=== PATIENT | female | born 1935 | race Caucasian/White ===

== ENCOUNTER 2020-08-20 13:52 | Emergency (ER) | payer SELFPAY ==
--- NOTE | 2020-08-20 17:09 | ER Document Report ---
ED GI/ - General Stated Complaint: AMS Time Seen by Provider: 08/20/20 16:36 Primary Care Provider: TUCKER TATUM DO [NO LOCAL MD] - Follow up tomorrow Notes: Patient is an 84-year-old female presents emergency department with a chief complaint of nausea, vomiting, feeling dehydrated. Patient has history of an acute kidney injury with metabolic acidosis and admission on July 17 in [facility]. Discharge paperwork states that she had hyperkalemia with acute kidney injury. She was supposed to go to her primary care provider today, but she states, "he was on vacation." Patient then went to urgent care, who then referred her to the emergency department. Patient states that she recently moved down here in the past 3 days. Patient has a urostomy and a colostomy. States that she is getting adequate output, but states that she does not feel she is "not getting enough." States that she has not been able to eat well. She lives with her , who apparently has dementia, according to the patient. Denies any contact with anyone who tested positive for COVID-19. - Related Data Allergies/Adverse Reactions: No Known Allergies Allergy (Verified 08/20/20 16:07) Past Medical History - General Information source: Patient - Social History Smoking Status: Never Smoker Family History: Reviewed & Not Pertinent - Past Medical History Cardiac Medical History: Reports: Hx Hypertension Renal/ Medical History: Reports: Hx End Stage Renal Disease Review of Systems - Review of Systems Notes: REVIEW OF SYSTEMS: CONSTITUTIONAL : Denies recent unintentional weight loss. See HPI. EENT: Denies eye, ear, throat, or mouth pain, discharge, or symptoms. Denies nasal or sinus congestion. CARDIOVASCULAR: Denies chest pain. RESPIRATORY: Denies shortness of breath, cough, congestion, difficulty breathing, or wheezing. GASTROINTESTINAL: Denies nausea, vomiting, and diarrhea. Denies abdominal pain. Denies constipation. GENITOURINARY: Denies difficulty urinating, burning, blood in urine, urgency or frequency. MUSCULOSKELETAL: Denies neck and back pain. Denies joint pain or swelling. SKIN: Denies rash, itchiness, or lesions HEMATOLOGIC : Denies easy bruising or bleeding. LYMPHATIC: Denies swollen, painful, enlarged glands. NEUROLOGICAL: See HPI. PSYCHIATRIC: Denies stress, anxiety, alteration in sleep patterns, or depression. All other systems reviewed and negative. Physical Exam - Vital signs Vitals: Temp Pulse Resp BP Pulse Ox 99.9 F 110 H 20 147/67 H 99 08/20/20 14:19 08/20/20 14:19 08/20/20 14:19 08/20/20 14:19 08/20/20 14:19 - Notes Notes: PHYSICAL EXAMINATION: GENERAL: Appears well, healthy, well-nourished, no acute distress. HEAD: Normocephalic, atraumatic. EYES: PERRL, conjunctiva normal, all extraocular movements intact, sclera no nicteric ENT: Moist mucous membranes. NECK: Supple, no noticeable swelling, redness, rash. Normal range of motion. LUNGS: Equal breath sounds bilaterally and clear to auscultation. No wheezes r ales or rhonchi. CARDIOVASCULAR: S1-S2, regular rate, regular rhythm. Radial pulses 2+, normal. ABDOMEN: Normoactive bowel sounds. Soft, nontender, no guarding, no rebound tenderness, and no masses palpated. EXTREMITIES: Normal strength and range of motion, no pitting or edema. No cyanosis. NEUROLOGICAL: Moves all extremities upon command. Strength 5/5 in all extremities. PSYCH: Normal mood, normal affect. SKIN: Warm, dry. No rash, lesions, ulcerations noted. Normal skin turgor. Course - Re-evaluation Re-evalutation: 08/20/20 18:24 CT went to bedside to take the patient to CAT scan, but she became angry and did not want to go to CT. She stated, "I do not need a fucking CAT scan." I explained to her that since she has been confused lately, it would be important to have a CAT scan to rule out any intracranial processes causing her to have her confusion. She states, "I just want a note my potassium is and I want to go." Patient is alert and oriented and is able to make her own decisions. She did not have information on what her last potassium was. Patient states that her creatinine was 5 over at [facility]. Her creatinine is 2, which is improved. Patient is leaving AGAINST MEDICAL ADVICE, as I would like to have a CT of her head. The patient has chosen to leave the facility against medical advice. The relevant issues have been reviewed and discussed with the patient and family at the bedside. At the time of this assessment there is no indication for involuntary commitment. The patient is alert, oriented, and able to express clearly their reasoning for not wanting to remain in the emergency department for further treatment. The patient is not clinically psychotic, intoxicated, and denies and suicidal ideation. Differential or suspected diagnoses based on medical screening exam: Intracranial bleed, microvascular ischemia. The patient is aware of the concerning diagnoses and acknowledges understanding of the reasons for the following recommendations: She is aware that a CT scan is recommended. The following recommendations/services were offered and refused: CT scan of the head. The following risks were explained: , permanent disability, loss of function Clinical impression: Patient is competent to make decisions regarding the medical that is being offered. - Vital Signs Vital signs: Temp Pulse Resp BP Pulse Ox 99.9 F 87 18 125/74 98 08/20/20 14:19 08/20/20 18:43 08/20/20 18:43 08/20/20 18:43 08/20/20 18:43 - Laboratory Result Diagrams: 08/20/20 15:38 08/20/20 15:38 Laboratory results interpreted by me: 08/20/20 08/20/20 15:38 15:38 RBC 3.26 L Hgb 10.6 L Hct 31.5 L Lymph % (Auto) 5.6 L Absolute Lymphs (auto) 0.4 L Seg Neutrophils % 83.6 H Carbon Dioxide 21 L BUN 42 H Creatinine 2.00 H Est GFR ( Amer) 29 L Est GFR (MDRD) Non-Af 24 L Glucose 117 H Discharge - Discharge Clinical Impression: Nausea and vomiting, Confusion Condition: Stable Disposition: AGAINST MEDICAL ADVICE Additional Instructions: You were seen today in the emergency department to have your labs checked. Your potassium is normal. Your creatinine is elevated, but you states that it is better than it was. I recommend that you have a CT scan of the head, but you are not wanting this at this time. Please follow-up with your doctor tomorrow in regards to this visit. Referrals: TUCKER TATUM DO [NO LOCAL MD] - Follow up tomorrow
[2020-08-20 17:31] LABS: ABSOLUTE EOSINOPHILS # (AUTO) 0.1 10^3/uL (0.0-0.6); ABSOLUTE LYMPHOCYTES (AUTO) 0.4 10^3/uL (0.5-4.7); ABSOLUTE MONOCYTES (AUTO) 0.6 10^3/uL (0.1-1.4); ABSOLUTE NEUT (AUTO) 5.7 10^3/uL (1.7-8.2); BASOPHILS % (AUTO) 0.5 % (0-2); EOSINOPHILS % (AUTO) 1.6 % (0-6); HEMATOCRIT 31.5 % (36.0-47.0); HEMOGLOBIN 10.6 g/dL (12.0-15.5); LYMPHOCYTES % (AUTO) 5.6 % (13-45); MEAN CORPUSCULAR HEMOGLOBIN 32.5 pg (27.0-33.4); MEAN CORPUSCULAR HGB CONC 33.6 g/dL (32.0-36.0); MEAN CORPUSCULAR VOLUME 97 fl (80-97); MONOCYTES % (AUTO) 8.7 % (3-13); PLATELET COUNT 221 10^3/uL (150-450); RED BLOOD COUNT 3.26 10^6/uL (3.72-5.28); RED CELL DISTRIBUTION WIDTH 12.8 % (11.5-14.0); SEGMENTED NEUTROPHILS % (AUTO) 83.6 % (42-78); TOTAL CELLS COUNTED % (AUTO) 100 %; WHITE BLOOD COUNT 6.8 10^3/uL (4.0-10.5)
[2020-08-20 17:32] LABS: VENOUS BLOOD BASE EXCESS -2.3 mmol/L; VENOUS BLOOD HCO3 24.3 mmol/L (20-32); VENOUS BLOOD PCO2 49.2 mmHg (35-63); VENOUS BLOOD PH 7.31 (7.30-7.42)
[2020-08-20 17:39] LABS: ALKALINE PHOSPHATASE 92 U/L (38-126); ANION GAP 15 (5-19); ASPARTATE AMINO TRANSFERASE 20 U/L (14-36); BILIRUBIN,DIRECT 0.2 mg/dL (0.0-0.4); BILIRUBIN,TOTAL 0.5 mg/dL (0.2-1.3); BLOOD UREA NITROGEN 42 mg/dL (7-20); CALCIUM 9.3 mg/dL (8.4-10.2); CARBON DIOXIDE 21 mmol/L (22-30); CHLORIDE 102 mmol/L (98-107); GLUCOSE 117 mg/dL (75-110); POTASSIUM 4.3 mmol/L (3.6-5.0)
[2020-08-20 18:44] VITALS: BP 125/74
== END 2020-08-20 18:45 | disposition left against medical advice (07) ==
LOC: ER 13:52
DX: R11.2 Nausea with vomiting, unspecified (principal); R41.0 Disorientation, unspecified; E86.0 Dehydration; I10 Essential (primary) hypertension
CPT/HCPCS: 36415; 80053; 82803; 85025; 99283

== ENCOUNTER → 2020-11-08 | Outpatient (CLI) | payer BC ==
--- NOTE | 2020-11-08 16:30 | RADIOLOGY REPORT (SQ) ---
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 TECHNIQUE: Images of the axial and proximal appendicular skeleton are obtained, along with lateral s kull and frontal chest films. LIMITATIONS: None. FINDINGS: AP CHEST: No bony findings. Lungs are clear. LATERAL SKULL: No worrisome bone lesions. AP BOTH HUMERI: No worrisome bone lesions. TWO-VIEW LUMBAR SPINE: No worrisome bone lesions. TWO-VIEW THORACIC SPINE: No worrisome bone lesions. AP PELVIS: No worrisome bone lesions. AP BOTH FEMURS: No worrisome bone lesions. OTHER: Diffuse degenerative changes are demonstrated. Extensive abdominal surgical changes. C3/4 AC DF. IMPRESSION: NO WORRISOME BONE LESIONS. TECHNICAL DOCUMENTATION: JOB ID: [id number] 2010 [employer]- All Rights Reserved Reading location - IP/workstation name: [email or web address]
== END ==
LOC: RAD 15:23
PROVIDERS: ATTEND Internal Medicine
DX: C83.09 Small cell B-cell lymphoma, extranodal and solid organ sites (principal); D47.2 Monoclonal gammopathy; D64.9 Anemia, unspecified
CPT/HCPCS: 77075